=== PATIENT | female | born 1935 | race Caucasian/White ===

== ENCOUNTER 2018-02-01 02:02 | Emergency (ER) | payer OTHER ==
[~2018-02-01] VITALS: Ht 144.8 cm; Wt 43.1 kg
[~2018-02-01 02:02] MED LIST: ALENDRONATE SOD70 M3 PO; AMOXICILLIN500 M1 PO; ANT25 PO; CLARITHROMYCIN500 M1 PO; COL100 PO; COLACE100 MG PO; IBUPROFEN400 MG PO; IMITREX PO; LAC PO; LEVAQUIN250 MG PO; LISINOPRIL2.5 MG PO; MECLIZINE HYD12.5 MG PO; NORCO1 TA2 PO; SPIRIVA; SPIRIVA18 MC1 INH; TYLENOL WITH CO1 TA2 PO; ZES5 PO; ZOF4 PO
[2018-02-01 02:19] VITALS: Ht 144.8 cm; Wt 43.1 kg
[2018-02-01 03:28] LABS: BASOPHIL % 0.5 % (0-2); PLATELET COUNT 171 x10^3mcL (130-400)
[2018-02-01 04:06] LABS: CALCIUM 9.9 mg/dL (8.5-10.1); CARBON DIOXIDE 31.3 mmol/L (21-32); CHLORIDE SERUM 104 mmol/L (98-107); GLUCOSE SERUM 127 mg/dL (74-106); POTASSIUM SERUM 3.8 mmol/L (3.5-5.1); SODIUM SERUM 143 mmol/L (136-145)
[2018-02-01 04:10] LABS: ALBUMIN 3.7 g/dL (3.4-5.0); ALKALINE PHOSPHATASE 105 U/L (46-116); ALT/SGPT 18 U/L (14-59); AST/SGOT 24 U/L (15-37); BILIRUBIN TOTAL 0.48 mg/dL (0.20-1.00); LIPASE 136 IU/L (73-393)
[2018-02-01 04:11] LABS: AMYLASE 127 U/L (25-115)
[2018-02-01] MEDS ORDERED: COLACE100 MG PO (04:22)
[2018-02-01] MEDS ORDERED: PROAIR HFA8.5 GM IH (04:23)
[2018-02-01] MEDS ORDERED: ARICEPT5 MG PO (04:24)
[2018-02-01] MEDS ORDERED: APAP500 MG PO (04:25)
[2018-02-01 04:29] LABS: UA SPECIFIC GRAVITY 1.025 (1.005-1.035); microscopic required? YES; urine erythrocyte 2+ (NEGATIVE)
[2018-02-01 07:25] VITALS: BP 149/77
== END 2018-02-01 07:25 | disposition short-term general hospital (02) ==
LOC: ED 02:02
PROVIDERS: Emergency Medicine
DX: K56.609 Unspecified intestinal obstruction, unspecified as to partial versus complete obstruction (principal); E86.0 Dehydration; I10 Essential (primary) hypertension; J44.9 Chronic obstructive pulmonary disease, unspecified; M81.0 Age-related osteoporosis without current pathological fracture
CPT/HCPCS: 83880; J2270; J2405; J7030; J7040

== ENCOUNTER 2019-01-26 02:03 | Inpatient (IN) | payer OTHER ==
[~2019-01-26] VITALS: Ht 144.8 cm; Wt 35.8 kg
[~2019-01-26 02:03] MED LIST changes: +APAP500 MG PO; +ARICEPT5 MG PO; +PROAIR HFA8.5 GM IH
[2019-01-26 02:11] VITALS: Ht 144.8 cm; Wt 35.8 kg
--- NOTE | 2019-01-26 02:33 | NUR ---
PT PRESENTS TO ED WITH C/O ABDOMINAL PAIN AND VOMITING. PER PT FAMILY, PT HAS HX OF BOWEL OBSTRUCTIONS REQUIRING NG TUBE PLACEMENT AND SURGERY. PT DAUGHTER STATES THAT SHE HAS NOT HAD A NORMAL BOWEL MOVEMENT FOR 5 DAYS. PT STATES TO BILATERAL LOWER QUADRANT PAIN. PT ABDOMEN SOFT AND FLAT WITH INCREASED PAIN ON PALPATION. PT DAUGHTER STATES TO X5 EPISODES OF VOMITING SINCE 1999 LAST NIGHT. PT DAUGHTER STATES THAT SHE ADMINISTERED AN ENEMA THAT PRODUCED "A FEW POPEYE OF POOP" HOWEVER, PT CONTINUES TO EXPERIENCE ABDOMINAL PAIN. PT AOX4, RESP EVEN AND UNLABORED, NO ACUTE DISTRESS NOTED. PT DAUGHTER AT BEDSIDE.
--- NOTE | 2019-01-26 02:50 | NUR ---
DR PERES AT BEDSIDE FOR MSE.
--- NOTE | 2019-01-26 03:11 | NUR ---
PT NOTED TO BE HOLDING HER BREATH, O2 SAT IN THE LOW 80'S. INSTRUCTED PT NOT TO HOLD HER BREATH HOWEVER, PT CONTINUES TO HOLD BREATH. PT PLACED ON 2L O2 VIA NC O2 SAT NOTED AT 98% AT THIS TIME.
[2019-01-26 03:42] LABS: BASOPHIL % 0.7 % (0-2); RED CELL DISTRIBUTION WIDTH 13.8 % (11.5-14.5)
--- NOTE | 2019-01-26 03:42 | NUR ---
PT OFF FLOOR FOR CT.
[2019-01-26 03:44] LABS: CALCIUM 9.3 mg/dL (8.5-10.1); CARBON DIOXIDE 28.2 mmol/L (21-32); CHLORIDE SERUM 107 mmol/L (98-107); CREATININE SERUM 0.9 mg/dL (0.6-1.0); GLUCOSE SERUM 145 mg/dL (74-106); SODIUM SERUM 144 mmol/L (136-145)
[2019-01-26 03:46] LABS: PLATELET COUNT 35 x10^3mcL (130-400)
[2019-01-26 03:50] LABS: ALBUMIN 3.4 g/dL (3.4-5.0); ALKALINE PHOSPHATASE 101 U/L (46-116); ALT/SGPT 29 U/L (14-59); AST/SGOT 24 U/L (15-37); BILIRUBIN TOTAL 0.5 mg/dL (0.20-1.00); LIPASE 73 IU/L (73-393); TOTAL PROTEIN, SERUM 7.1 g/dL (6.4-8.2)
--- NOTE | 2019-01-26 03:59 | NUR ---
PT RETURNS FROM CT WITHOUT INCIDENT. PLACED BACK ON FULL CM.
--- NOTE | 2019-01-26 04:04 | NUR ---
PT PLACED ON BEDPAN AT THIS TIME.
--- NOTE | 2019-01-26 04:39 | NUR ---
PT RESTING WITH EYES CLOSED AT THIS TIME, RESP EVEN AND UNLABORED, NO ACUTE DISTRESS NOTED. PT ON CM, IN VIEW OF NURSE'S STATION.
--- NOTE | 2019-01-26 06:04 | NUR ---
PT RESTING IN A POSITION OF COMFORT WITH EYES CLOSED. RESP EVEN AND UNLABORED, NO ACUTE DISTRESS NOTED. PT ON CM IN VIEW OF NURSE'S STATION.
--- NOTE | 2019-01-26 06:11 | NUR ---
PT DAUGHTER UNABLE TO RECALL MEDICATION LIST AT THIS TIME.
--- NOTE | 2019-01-26 06:39 | NUR ---
PLACEMENT CONFIRMED BY XRAY AND READ BY DR PERES. PER DR PERES, SET SUCTION TO LOW INTERMITTANT, BROWN/GREEN GASTRIC CONTENTS DRAINING APPROPRIATELY.
--- NOTE | 2019-01-26 08:02 | NUR ---
PT REPROT GIVEN TO ANDRES COKER ALL QUESTIONS ADDRESSED AT THIS TIME.
--- NOTE | 2019-01-26 08:10 | NUR ---
RECIEVED PT VIA SOPHIE FROM ER DEPT. RECIEVED REPORT FROM ANDRES DE LEÓN. PT A/O X4, NO C/O HUIZAR OR DIZZINESS. TELE MONITOR 7 CONNECTED TO PT WITH MONITOR READING SR DECREASED T, BBB. DR ANDERSON AWARE. PT DENIES ANY CP OR PRESSURE AT THSI TIME. LUNGS CTAB ON RA 94% SAT. NGT CONNECTED TO R NARE ON LOW INTERMITTENT SUCTION. NO SOB NOTED. ECCHYMOSIS NOTED TO BUE. PT REPOERTS NO PAIN AT THSI TIME. D5NS RUNNING AT 80ML/HR TO LAC 20 GUAGE. IV INTACT AND PATENT WITH NO REDNESS OR INFLAMMATION NOTED. PT NPO AT THSI TIME NKA. SAFETY PRECAUTIONS IN PLACE, CALL LIGHT WITHIN REACH, WILL MONITOR.
--- NOTE | 2019-01-26 11:00 | NUR ---
PT STABEL AND RESTING IN BED WITH NO C/O PAIN, DISTRESS, OR SOB. DAUGHTER AT BEDSIDE. SAFETY PRECAUTIONS IN PLACE, CALL LIGHT WITHIN REACH, WILL MONITOR
--- NOTE | 2019-01-26 14:30 | NUR ---
PT STILL RESTING WITH NO DISTRESS NOTED. DAUGHTER AT BEDSIDE, TOLERATING ALL CARES WELL. CALL LIGHT WITHIN REACH, WILL MAXIMUS
[2019-01-26 16:00] VITALS: BP 138/63
[2019-01-26 16:01] VITALS: BP 135/57
--- NOTE | 2019-01-26 18:54 | NUR ---
PT RESTING COMFORTABLY IN BED WITH DAUGHTER AT BEDSIDE. DENIES ANY PAIN, DISTRESSS, OR SOB. VS WNL. IV INTACT AND PATENT WITH NO REDNESS OR INFLAMMATION. SCD,S ON PT.SAFETY PRECAUTIONS IN PLACE, CALL LIGHT WITHIN REACH, WILL ENDORSE CARE TO NIGHT NURSE.
--- NOTE | 2019-01-26 19:55 | NUR ---
DAUGHTER AT BEDSIDE FOR VISIT, AM CHARGE NURSE TALKED TO HER RE PLAN EXPLORE LAP FOR BOWEL OBSTRUCTION POSS BOWEL RESECTION, SURGEON WILL TALK TO THE DAUGHTER IN AM, DAUGHTER STATED WILL COME EARLY TOMORROW MORNING, PT REMAINED NPO, WITH NGT TO LOW INTERMITTENT SUCTION, HAS BROWNISH GREEN OUTPUT, IVF D5NS INFUSING @ 80CC/HR IV ACCESS LAC PATENT NON INFIL, SCD'S FOR DVT PROPHYLAXIS, TELE #7 INPLACED SR WITH BBB AND DEPRESSED TWAVE, NO CT OR PRESSURE, SKIN INTACT, DENIES PAIN, NO DISTRESS DIM LUNGS SOUND AT THE BASES, NO COUGHING OR CHEST CONGESTION, SHIFT ASSESSMENT DONE, ATTENDED NEEDS CONT TO MONITOR.
[2019-01-26 21:10] VITALS: BP 132/58
--- NOTE | 2019-01-26 22:46 | NUR ---
PT ASLEEP NO S/SX OF PAIN OR DISCOMFORTS, NGT TO LOW INTERMITTENT SUCT FUNCTIONING WELL, NO NAUSEA OR VOMITING, IVF INFUSING WELL, CHECKED AT INTERVALS.
--- NOTE | 2019-01-26 22:58 | NUR ---
SALINE ENEMA ADMINISTERED X1 PER MD'S ORDER, PRIYANK WELL.
--- NOTE | 2019-01-27 02:54 | NUR ---
NO BM POST FLEETS ENEMA, PT REMAINED ON NGT TO LOW INTERMITTENT SUCTION, ASLEEP NO S/SX OF PAIN.
[2019-01-27 05:30] VITALS: BP 133/76
[2019-01-27 06:28] LABS: BASOPHIL % 0.1 % (0-2); PLATELET COUNT 138 x10^3mcL (130-400); RED CELL DISTRIBUTION WIDTH 14.4 % (11.5-14.5)
[2019-01-27 06:29] LABS: ALKALINE PHOSPHATASE 83 U/L (46-116); ALT/SGPT 18 U/L (14-59); AST/SGOT 14 U/L (15-37); BILIRUBIN TOTAL 0.39 mg/dL (0.20-1.00); CALCIUM 9.3 mg/dL (8.5-10.1); CHLORIDE SERUM 111 mmol/L (98-107); CREATININE SERUM 0.8 mg/dL (0.6-1.0); GLUCOSE SERUM 164 mg/dL (74-106); MAGNESIUM 2.1 mg/dL (1.8-2.4); POTASSIUM SERUM 4.6 mmol/L (3.5-5.1); SODIUM SERUM 150 mmol/L (136-145)
--- NOTE | 2019-01-27 06:29 | NUR ---
PT REMAINED NPO, CHLORHEXIDINE WIPES DONE, PT DENIES PAIN NO NAUSEA OR VOMITING STILL NO BM AFTER ENEMA X1 WILL CONT TO MONITOR.
--- NOTE | 2019-01-27 07:15 | NUR ---
RECEIVED PATIENT FROM [employer] SPECIALIST NURSE. PATIENT IS RESTING WITH BOTH EYES CLOSED, AROUSABLE. TELE#7, SR, HR 86. PATIENT IS ON 2L NC, BREATHING EVEN AND UNLABORED. NGT NOTED TO LOW INTERMITTENT SUCTION WITH DARK BROWN OUTPUT. CLEAN AND DRY AT THIS TIME. IV NOTED TO LAC, IVF INFUSING WELL ORDERED, NO S/S ERYTHEMA AT SITE. CALL LIGHT WITHIN EASY REACH. WILL CONTINUE PLAN OF CARE.
--- NOTE | 2019-01-27 08:09 | NUR ---
PATIENT TAKEN DOWN TO OR AT THIS TIME.
--- NOTE | 2019-01-27 10:24 | NUR ---
RECEIVED REPORT FROM MARTHA VELAZQUEZ RN. PATIENT TO BE BROUGHT UP TO [facility] AROUND 1045.
[2019-01-27 10:47] VITALS: BP 148/74
--- NOTE | 2019-01-27 10:47 | NUR ---
RECEIVED PATIENT FROM OR. PATIENT IS AWAKE, ALERT AND DROWSY. C/O ABD SURGICAL SITE PAIN. WILL MEDICATE PRN. VS STABLE; BP 148/74 (88). HR 63. O2 SAT 100% ON 3L NC, TITRATED TO 2L NC. RR 16. ABD BINDER IN PLACE, SURGICAL INCISION INTACT WITH NO DRAINAGE NOTED TO DRESSING. WILL CONTINUE TO MONITOR.
--- NOTE | 2019-01-27 11:46 | NUR ---
Initial Nutrition Assessment: 250T/B LOAN NARVAEZ Dx: SBO PMHx: SBO PSHx: Hernia Repair Labs: NA 150H, BG 164H, AST 14L Meds: D 5%, zofran Diet: NPO PO Intake: NPO Ht: 144.78 CM (57") Wt: 35.8 kg (78.7#) BMI: 17.1 kg/m2 Bed scale: not working IBW: 85# (39 kg) %IBW: 92 UBW: ~35-36 kg Age: 83/F Food Allergies: NKFA Skin: ecchymosis BUE Walter: 21 Edema: none GI: SBO Last BM: none since admission Trigger: appears underweight/malnourished, N/V/D x 3d, unintentional weight loss >10# x 1 month, poor PO >3d, unable to ingest diet for age. 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 last bowel movement 4 days ago. Pain started acutely in the low abdominal region last night and CT revealed evidence of SBO. Patient was started on NGT decompression and her nausea resolved. Per progress note (01/27), Pt is going to OR today for ex-lap. RDN Visit (01/27): Patient appeared underweight, has an NGT for decompression and was sleeping. Patent's daughter was at bedside. Per daughter, patient is a light eater at home and does not have any chewing or swallowing difficulty. Daughter also mentioned that patient's weight has remained more or less the same since years. Problem with: N/V/D/C: pt has constipation Problems with: Chewing/Swallowing: none prior to admission Current appetite: poor Recent wt change: none %wt change: N/A Vitamin/Supplement use: none Special diet at home: regular Physical activity: walking, doing chores Nutrition education given: Patient's daughter had questions regarding diet for constipation issues. Concepts like high fiber food sources and increased consumption of fluids were emphasized. Food-drug interactions: none Education given: N/A Estimated Nutritional Needs Based on actual body weight 35.8 kg Energy: 5041-7091 kcal/d (30-35 kcal/kg)- geriatric maintenance Protein: 43-50 g/d (1.2-1.4g/kg)- geriatric maintenance Fluid: 8081-2673 ml/d (1 ml/kcal) or per doctor Nutrition Diagnosis 1. Malnutrition related to poor PO 2/2 SBO as evidenced by BMI 17.1 kg/m2. Intervention 1. Recommend CCHO diet (texture to be determined by [facility]) once medically appropriate/ tolerated. 2. Recommend Glucerna BID once diet id initiated. Monitor/Evaluate Goal: PO intake at least 75% of estimated needs Monitor: PO intake, Labs, GI function F/U in 2-3 days as high risk 01/29-
--- NOTE | 2019-01-27 11:46 | NUR ---
1. Recommend CCHO diet (texture to be determined by SPINNING ROOM WORKER) once medically appropriate/ tolerated. 2. Recommend Glucerna BID once diet id initiated.
--- NOTE | 2019-01-27 12:19 | NUR ---
NG TUBE ATTATCHED TO DARINAGE BACK TO DRAIN TO GRAVITY PER ORDERS. OUTPUT IS DARK BROWN. WILL CONTINUE TO MONITOR.
[2019-01-27 12:41] VITALS: BP 131/63
[2019-01-27 15:54] VITALS: BP 132/63
--- NOTE | 2019-01-27 18:49 | NUR ---
PATIENT RESTING EASY IN NO ACUTE DISTRESS. PATIENT CARE ENDORSED TO METAL TANK BUILDER NURSE.
--- NOTE | 2019-01-27 20:00 | NUR ---
RECEIVED PT IN BED, RESTING QUIETLY, WITH DAUGHTER AT THE BEDSIDE. ALERT AND ORIENTED. ABLE TO VERBALIZE NEEDS. RESP. EVEN AND UNLABORED. 02 AT 2L/MIN , SAT. 99%. LUNG SOUNDS CLEAR , BUT DIM. AT THE BASES. NGT TO RT NARE, CONNECTED TO GRAVITY DRAINAGE BAG, MIN. BROWNISH COLOR DRAINAGE NOTED IN THE TUBING. S/P EXP. LAP, ABD. DRESSING DRY AND INTACT, ABD. BINDER IN PLACE. NPO MAINTAINED. NO N/V NOTED. IVF, D51/2NS AT 60ML/HR, INTACT AND INFUSING VIA RAC, SITE CLEAR. HERNANDEZ CATH INTACT AND DRAINING YELLOW COLOR URINE. SCDS TO BLE FOR DVT PROPHYLASIX. SR WITH BBB ON THE MONITOR, DENIES CP OR ANY DISCOMFORT AT THIS TIME.CALL LIGHT WITHIN REACH. WILL CONTINUE TO MONITOR.
[2019-01-27 20:57] VITALS: BP 125/54
--- NOTE | 2019-01-27 21:30 | NUR ---
STARTED ON PPN AT 50ML/HR ORDERED. WILL CONTINUE TO MONITOR.
--- NOTE | 2019-01-27 22:52 | NUR ---
COMPLAINED OF ABD. SURG. SITE PAIN, 6/10, MEDICATED WITH MORPHINE SULFATE ORDERED. AFEBRILE AND VITAL SIGNS STABLE. WILL CONTINUE TO MONITOR.
--- NOTE | 2019-01-28 01:34 | NUR ---
RESTING QUIETLY WITH EYES CLOSED. APPEARS ASLEEP, EASILY AROUSABLE.RESP. EVEN AND UNLABORED. [address], NO ACUTE DISTRESS NOTED.
[2019-01-28 05:04] VITALS: BP 158/74
--- NOTE | 2019-01-28 06:17 | NUR ---
SLEPT WELL DURING THE NIGHT. AFEBRILE AND VITAL SIGNS STABLE. RESP. EVEN AND UNLABORED. [address], NO ACUTE DISTRESS NOTED. NGT IN PLACE, BROWNISH COLOR DRAINAGE NOTED IN THE TUBING, NONE IN THE DRAINAGE BAG. HERNANDEZ CATH INTACT AND DRAINING YELLOW COLOR URINE. ABD. DRESSING DRY AND INTACT. ABD. BINDER IN PLACE. NPO MAINTAINED. NO N/V NOTED. PPN AT 50ML/HR, INFUSING WELL, SITE CLEAR. TURNED AND REPOSITIONED FOR COMFORTABLE.CALL LIGHT WITHIN REACH. WILL CONTINUE TO MONITOR.
[2019-01-28 06:35] LABS: BASOPHIL % 0.3 % (0-2)
[2019-01-28 06:39] LABS: PLATELET COUNT 127 x10^3mcL (130-400); RED CELL DISTRIBUTION WIDTH 14.6 % (11.5-14.5)
[2019-01-28 07:04] LABS: ALKALINE PHOSPHATASE 73 U/L (46-116); ALT/SGPT 13 U/L (14-59); AST/SGOT 11 U/L (15-37); BILIRUBIN TOTAL 0.45 mg/dL (0.20-1.00); CALCIUM 8.4 mg/dL (8.5-10.1); CARBON DIOXIDE 30.1 mmol/L (21-32); CHLORIDE SERUM 110 mmol/L (98-107); CREATININE SERUM 0.6 mg/dL (0.6-1.0); GLUCOSE SERUM 141 mg/dL (74-106); MAGNESIUM 2.1 mg/dL (1.8-2.4); POTASSIUM SERUM 3.7 mmol/L (3.5-5.1); SODIUM SERUM 148 mmol/L (136-145)
--- NOTE | 2019-01-28 07:15 | NUR ---
RECEIVED PATIENT FROM ELASTIC ATTACHER COVERSTITCH NURSE. PATIENT IS AWAKE, ALERT AND ORIENTED. TELE#7, SR, HR 71. ON 2L NC, BREATHING EVEN AND UNLABORED. NG TUBE NOTED TO RIGHT NARE, DRAINING TO GRAVITY. HERNANDEZ CATHETER DRAINING PALE YELLOW URINE TO GRAVITY WELL, FREE OF KINKS. NICODERM PATCH NOTED TO RIGHT ARM. ABD BINDER REMAINS IN PLACE: PATIENT S/P EX-LAP ON 01/27. IV NOTED TO RAC, SALINE LOCKED, NO S/S ERYTHEMA AT SITE. TPN INFUSING WELL TO LAC, NO S/S ERYTHEMA AT SITE. CALL LIGHT WITHIN EASY REACH. WILL CONTINUE PLAN OF CARE.
[2019-01-28 07:16] LABS: ALBUMIN 2.5 g/dL (3.4-5.0)
[2019-01-28 08:20] VITALS: BP 182/77
--- NOTE | 2019-01-28 11:45 | NUR ---
NG TUBE ADVANCED AT THIS TIME. PENDING KUB FOR PLACEMENT REASSESSMENT. PATIENT TOLERATED WELL.
[2019-01-28 11:57] VITALS: BP 164/71
--- NOTE | 2019-01-28 12:42 | NUR ---
PATIENT ASSESSED AND APPEARS LETHARGIC, FOLLOWS SIMPLE COMMANDS. PUPILS BRISK 3MM. CHANGE IN PATIENTS APPEARANCE. PATIENT APPEARS TO BE SLIGHTLY MORE PALE THAN EARLIER THIS MORNING. PATIENT PLACED ON MONITOR WITH O2 SAT READING 90%, PLACED ON NASAL CANNULA, RESP APPEAR SHALLOW RR 12. NEW O2 SAT READING 99% ON 3L NC. PATIENT RESPONSIVE TO TACTILE STIMULATION. DR ANDERSON PAGED AND ORDER FOR NARCAN PRN OBTAINED. PATIENT IS NOW AWAKE AND ALERT WITH FAMILY AT THE BEDSIDE. FAMILY INSTRUCTED TO NOTIFY IF PATIENT HAS ANY CHANGE IN CONDITION. WILL CONTINUE TO CLOSELY MONITOR.
[2019-01-28 12:53] VITALS: BP 136/64
--- NOTE | 2019-01-28 14:30 | NUR ---
PATIENT AWAKE AND ALERT, CONVERSING WITH FAMILY. NG TUBE CONNECTED TO REGULAR SUCTION AT THIS TIME PER DR PERDUE ORDERS. DARK BROWN OUTPUT: APRROX 150CC. RECONNECTED TO GRAVITY AND DRAINING TO GRAVITY WELL. WILL CONTINUE TO MONITOR.
--- NOTE | 2019-01-28 16:36 | NUR ---
HERNANDEZ CATHETER DC'D AT THIS TIME. PATIENT TOLERATED WELL.
[2019-01-28 16:43] VITALS: BP 137/55
--- NOTE | 2019-01-28 18:39 | NUR ---
PATIENT RESTING EASY. DENIES PAIN AND DISCOMFORT AT THIS TIME. NG TUBE TO GRAVITY, DARK BROWN OUTPUT. TPN INFUSING WELL TO LAC, NO S/S ERYTHEMA AT SITE. CALL LIGHT WITHIN EASY REACH. WILL ENDORSE PATIENT CARE TO ACCOUNT LIAISON NURSE.
--- NOTE | 2019-01-28 20:03 | NUR ---
RECEIVED PT IN BED, RESTING ,NO COMPLAINTS NOTED AT THIS TIME. ALERT AND ORIENTED. ABLE TO VERBALIZE NEEDS. RESP. EVEN AND UNLABORED. 02 AT 3L/MIN VIA NC, SAT. 99%. NO ACUTE DISTRESS NOTED. AFEBRILE AND VITAL SIGNS STABLE. ABD. DRESSING DRY AND INTACT. ABD. BINDER IN PLACE. NGT TO GRAVITY GRAINAGE , WITH CONNECT TO SUCTION 30 SECONDS Q4HRS ORDERED. BROWNISH COLOR DRAINAGE NOTED. INCONT. OF URINE, CLEANED AND KEPT COMFORTABLE. PPN AT 50ML/HR, INFUSING VIA LAC, SITE CLEAR. HL TO TO RFA, INTACT AND PATENT. CALL LIGHT WITHIN REACH. WILL CONTINUE TO MONITOR.
[2019-01-28 21:24] VITALS: BP 127/55
--- NOTE | 2019-01-28 22:56 | NUR ---
2230- NGT CONNECTED TO SUCTION [id number]. AND RECONNECTED TO GRAVITY DRAINAGE.PRIYANK. WELL. NO COMPLAINTS NOTED AT THIS TIME. WILL CONTINUE TO MONITOR.
--- NOTE | 2019-01-29 03:44 | NUR ---
RESTING QUIETLY, WITH EYES CLOSED, APPEARS ASLEEP, EASILY AROUSABLE. RESP. EVEN AND UNLABORED. [address], NO ACUTE DISTRESS NOTED. AFEBRILE AND VITAL SIGNS STABLE. NGT IN PLACE. WILL CONTINUE TO MONITOR.
[2019-01-29 05:42] LABS: BASOPHIL % 0 % (0-2); PLATELET COUNT 112 x10^3mcL (130-400); RED CELL DISTRIBUTION WIDTH 13.8 % (11.5-14.5)
--- NOTE | 2019-01-29 05:50 | NUR ---
SLEPT MOST OF THE NIGHT. NO COMPLAINTS OF PAIN OR ANY DISCOMFORT.AFEBRILE AND VITAL SIGNS STABLE. SR ON THE MONITOR, DENIES CP. RESP. EVEN AND UNLABORED. [address], NO ACUTE DISTRESS NOTED. NGT INTACT, CONNECTED TO GRAVITY DRAINAGE AT THIS TIME, CONNECTED TO SUCTION Q4HRS FOR 30SECS. ORDERED. BROWNISH/BILE DRAINAGE NOTED. TOTAL 250ML. NOTED. NPO MAINTAINED. NO N/V NOTED. PPN AT 50ML/HR, INTACT AND INFUSING WELL, SITE CLEAR. DUE MEDS GIVEN ORDERED. TURNED AND REPOSITIONED Q2HRS AND PRN. KEPT COMFORTABLE. ABD. DRESSING DRY AND INTACT. ABD. BINDER IN PLACE. WILL CONTINUE TO MONITOR.
[2019-01-29 05:55] LABS: ALKALINE PHOSPHATASE 68 U/L (46-116); ALT/SGPT 11 U/L (14-59); AST/SGOT 8 U/L (15-37); BILIRUBIN TOTAL 0.36 mg/dL (0.20-1.00); CARBON DIOXIDE 32.9 mmol/L (21-32); CHLORIDE SERUM 105 mmol/L (98-107); CREATININE SERUM 0.7 mg/dL (0.6-1.0); GLUCOSE SERUM 143 mg/dL (74-106); MAGNESIUM 2.3 mg/dL (1.8-2.4); POTASSIUM SERUM 3.2 mmol/L (3.5-5.1); SODIUM SERUM 145 mmol/L (136-145); TOTAL PROTEIN, SERUM 6.3 g/dL (6.4-8.2)
[2019-01-29 05:57] LABS: ALBUMIN 2.4 g/dL (3.4-5.0)
[2019-01-29 06:02] VITALS: BP 139/68
--- NOTE | 2019-01-29 07:54 | NUR ---
AT 0730 - RECEIVED PATIENT FROM NIGHT NURSE. AWAKE, ALERT AND APPEARS ORIENTED. C/O SLIGHT HEADACHE. MONITOR SHOWING SINUS RHYTHM; RATE 70. IV IN LAC INFUSING TPN AT 50 ML/HR. NG TUBE TO GRAVITY - MINIMAL DARK BROWN DRAINAGE IN TUBING. ABDOMEN FLAT WITH DRESSING DRY AND INTACT AND ABDOMINAL BINDER IN PLACE. ICE PACK APPLIED TO HEAD FOR C/O SLIGHT HEADACHE. PATIENT IS NPO.
[2019-01-29 08:15] VITALS: BP 151/65
[2019-01-29 11:55] VITALS: BP 139/58
--- NOTE | 2019-01-29 13:35 | NUR ---
1. Recommend [facility] diet once diet is progressed/tolerated. 2. Continue TPN D10%, AA 4.25% @ 50ml/hr. This provides 612 kcal and 51g protein
--- NOTE | 2019-01-29 13:35 | NUR ---
Follow-up Nutrition Assessment: 250T/B SOLANGELOAN Moody FU HR Dx: SBO PMHx: SBO Labs: (01/29): K 3.2L, BG 143H, BUN 26H Meds: D10%, Humulin, zofran Diet: NPO, TPN 50ml/hr (1200 ml), Dextrose 10%, amino acid 4.25% PO Intake: NPO Weights: (01/26) 35.8 kg Skin: BUE ecchymosis Walter: 19 I/Os: 1370/1600 Edema: none GI: S/P ex-lap, NG tube to gravity Last BM: 01/25 RDN Visit (01/29): Patient was sleeping. TPN was running @ 50ml/hr. Per RN Rani, NG tube placed for suction is to be removed and pt will be NPO after. Clear liquid diet will be started from tomorrow morning however there are no discussions to D/C TPN yet. Estimated Nutritional Needs Based on actual body weight 35.8 kg Energy: 5229-4312 kcal/d (30-35 kcal/kg)- geriatric maintenance Protein: 43-50 g/d (1.2-1.4g/kg)- geriatric maintenance Fluid: 7692-5120 ml/d (1 ml/kcal) or per doctor Nutrition Diagnosis 1. Malnutrition related to poor PO 2/2 SBO as evidenced by BMI 17.1 kg/m2. (ongoing) Intervention 1. Recommend CCHO diet once diet is progressed/tolerated. 2. Continue TPN D10%, AA 4.25% @ 50ml/hr. This provides 612 kcal and 51g protein Monitor/Evaluate Goal: Have pt meet at least 75% of estimated needs Monitor: PO intake, Labs, GI function F/U in 2-3 days as high risk 01/31-
--- NOTE | 2019-01-29 13:46 | NUR ---
AT 1000- SEEN BY DR XIE AND DR ANDERSON. NEW ORDERS RECEIVED. PER DR XIE, APTIENT TO RECEIVE MIRALAX AT 1100. ALSO OK TO GIVE OTHER ORDERS PO MEDS AT THE TIME. CLAMP NG TUBE FOR 1 HR POST MEDS. KEEP NG AT GRAVITY DRAINAGE THIS PM. REMOVE NG AT 1800 HR. PATIENT TO REMAIN NPO OVERNIGHT AT TO COMMENCE CLEAR LIQUID DIET IN AM.
[2019-01-29 17:02] VITALS: BP 109/48
--- NOTE | 2019-01-29 18:32 | NUR ---
QUIET AFTERNOON. NO C/O PAIN. VSS. AFEBRILE. AT 1845 - NG TUBE REMOVED INTACT PER ORDERS. PATIENT THEN AMBULATED IN HALLWAY WITH ASSISTANCE. TOLERATED WELL. STEADY GAIT. IV INFUSING TPN AT 50 ML/HR. PATIENT NOW NPO UNTIL MORNING. DRESSING TO ABDOMIN REMAINS DRY AND INTACT WITH ABDOMINAL BINDER IN PLACE. WILL ENDORSE CARE TO NIGHT NURSE.
--- NOTE | 2019-01-29 19:20 | NUR ---
REC'D PT FROM DAY NURSE. PT'S DAUGHTER AND GRANDDAUGHTER AT BEDSIDE. PT RESTING IN BED ASLEEP. EASILY AROUSABLE. AAOX4, SPEECH CLEAR, FOLLOWS COMMANDS. C/O 5/10 HUIZAR, WILL GIVE TYLENOL. TELE 7. DENIES CP, DIZZINESS, OR PALPITATIONS. DENIES RESP DISTRESS OR SOB. BREATHING EVEN/UNLABORED ON RA. C/O ABD PAIN WITH COUGH, NONPRODUCTIVE. ABD SOFT/ROUND. S/P EXP LAP WITH ENTEROLYSIS. DRESSING TO ABD CDI WITH ABD BINDER IN PLACE. DENIES ABD PAIN. NPO. CLEAR LIQUID FOR BREAKFAST. VOIDING FREELY WITH SOME INCONTINENCE. GEN WEAKNESS. AMBULATORY. ECCHYMOSIS TO BUE. ISLAND DRESSING TO LFA CDI. IV TO LAC PATENT AND INFUSING PPN @ 50 ML/HR. IV TO RH FLUSHED AND PATENT. SITES WNL. CALL LIGHT WITHIN REACH, BED AT LOWEST POSITION. WILL CONTINUE TO MONITOR.
--- NOTE | 2019-01-29 20:11 | NUR ---
DR. MASSIEL CONTRERAS. PT REQUESTING TYLENOL FOR HUIZAR, ONLY MORPHINE ON BOARD FOR PAIN.
--- NOTE | 2019-01-29 20:15 | NUR ---
REC'D CALL BACK FROM DR. RANKIN. REC'D ORDERS FOR TYLENOL AND NORCO.
--- NOTE | 2019-01-29 21:00 | NUR ---
TYLENOL GIVEN FOR HUIZAR 12/18. WILL MONITOR FOR RELIEF.
[2019-01-29 21:18] VITALS: BP 121/59
--- NOTE | 2019-01-30 00:42 | NUR ---
PT RESTING IN BED WITH EYES CLOSED. NO SIGNS OF DISTRESS NOTED. BREATHING EVEN/UNLABORED ON RA. CALL LIGHT WITHIN REACH, BED AT LOWEST POSITION. WILL CONTINUE TO MONITOR.
[2019-01-30 05:28] VITALS: BP 111/53
--- NOTE | 2019-01-30 06:15 | NUR ---
PT RESTING IN BED WITH EYES CLOSED. AWAKENS WITH VERBAL STIMULI. NO COMPLAINTS AT THIS TIME. DENIES PAIN. BREATHING EVEN/UNLABORED ON 2L NC. DRESSING TO ABD CDI WITH BINDER IN PLACE. DR. XIE ORDERED HIGH PROTEIN ENSURE TID, ENTERED BY TABLET REPAIR. NO SIGNIFICANT CHANGES. CALL LIGHT WITHIN REACH, BED AT LOWEST POSITION. WILL ENDORSE TO DAY NURSE.
[2019-01-30 07:27] LABS: BASOPHIL % 0.3 % (0-2); RED CELL DISTRIBUTION WIDTH 13.8 % (11.5-14.5)
[2019-01-30 07:28] LABS: ALKALINE PHOSPHATASE 62 U/L (46-116); ALT/SGPT 10 U/L (14-59); AST/SGOT 10 U/L (15-37); BILIRUBIN TOTAL 0.34 mg/dL (0.20-1.00); CARBON DIOXIDE 36.3 mmol/L (21-32); CHLORIDE SERUM 105 mmol/L (98-107); CREATININE SERUM 0.6 mg/dL (0.6-1.0); GLUCOSE SERUM 128 mg/dL (74-106); MAGNESIUM 2.5 mg/dL (1.8-2.4); PLATELET COUNT 112 x10^3mcL (130-400); SODIUM SERUM 145 mmol/L (136-145)
[2019-01-30 07:32] LABS: ALBUMIN 2.3 g/dL (3.4-5.0); POTASSIUM SERUM 2.9 mmol/L (3.5-5.1); TOTAL PROTEIN, SERUM 5.9 g/dL (6.4-8.2)
--- NOTE | 2019-01-30 07:49 | NUR ---
AT 0720 - RECEIVED PATIENT FROM NIGHT NURSE. SLEEPING. RESPIRATIONS REGULAR. MONITOR SHOWING SINUS RHYTHM/BBB; RATE 55. IV INFUSING TPN AT 50 ML/HR. PATIENT HAS BEEN NPO - TO START CLEAR LIQUIDS TODAY.
--- NOTE | 2019-01-30 08:01 | NUR ---
AT 0740 - RECEIVED CALL FROM LAB WITH K+ OF 2.9 NOT CALLED TO DOCTOR THERE IS A STANDING ORDER FOR KCL 40 MEQ DAILY FOR 4+ LEVEL < 4.0. WILL ADMINISTER ORDERED.
--- NOTE | 2019-01-30 08:03 | NUR ---
PATIENT IS AWAKE, ALERT AND ORIENTED. DENIES ANY PAIN OR NAUSEA. SAT UP IN BED FOR CLEAR LIQUID BREAKFAST.
[2019-01-30 08:19] VITALS: BP 136/69
--- NOTE | 2019-01-30 09:19 | NUR ---
PATIENT WAS ABLE TO TAKE APPROX 30% OF CLEAR LIQUID BREAKFAST WELL ALL PO MEDS. GIVEN 40 MEQ KCL PO PER EMAR FOR K+ OF 2.9.
--- NOTE | 2019-01-30 10:28 | NUR ---
PATIENT'S DAUGHTER AT [facility]. UPDATED ON CURRENT PLAN.
--- NOTE | 2019-01-30 10:49 | NUR ---
PATIENT AMBULATED IN HALLWAY. GOOD ACTIVITY TOLERANCE. SEEN BY DR XIE.
--- NOTE | 2019-01-30 10:56 | NUR ---
NEW ORDERS RECEIVED. DC PPN AFTER CURRENT BAG IS COMPLETED. AFTER PPN PT TO HAVE IV FLUID OF D5 1/2 NS AT 30 ML/HR. HOLD LUNCH TODAY AND RESUME CLEAR LIQUID DIET AT 1600 HR. SURGICAL INCISION DRESSING CHANGED BY DR XIE. INSICION WITH TOBIN IS CLEAN AND DRY. COVERED WITH GAUZED AND ISLAND DRESSING. ABDOMINAL BINDER IN PLACE.
--- NOTE | 2019-01-30 15:34 | NUR ---
SEEN BY DR RINCON. CONTINUE WITH ORDERS PER DR XIE. FOR LABS IN AM.
--- NOTE | 2019-01-30 15:57 | NUR ---
PATIENT AMBULATED IN HALLWAY. NO FURTHER C/O ABDOMINAL PAIN. REPORTS PASSING GAS. ACTIVE BOWEL SOUNDS ON AUSCULTATION. WILL RESUME CLEAR LIQUIDS PO.
[2019-01-30 17:09] VITALS: BP 116/53
--- NOTE | 2019-01-30 18:25 | NUR ---
TOLERATING CLEAR LIQUID DIET. REPORTS PASSING GAS. ACTIVE BOWEL SOUNDS. NO C/O ABDOMINAL PAIN. IV STIL INFUSING PPN AT 50 ML/HR. VSS. AFEBRILE. AMBULATED TO BATHROOM TO VOID. NO BM YET. HAS BEEN USING INSENTIVE SPIROMETER. ON ROOM AIR AT 93% O2 SAT. WILL ENDORSE CARE TO NIGHT NURSE.
--- NOTE | 2019-01-30 19:39 | NUR ---
REC'D PT FROM DAY NURSE. DAUGHTER AT BEDSIDE. PT RESTING IN BED. AAOX4, SPEECH CLEAR, FOLLOWS COMMANDS. TELE 7. DENIES CP, DIZZINESS, OR PALPITATIONS. NO EDEMA NOTED. DENIES RESP DISTRESS OR SOB. BREATHING EVEN/UNLABORED ON RA. ABD SOFT/ROUND. DENIES ABD PAIN, TENDERNESS, OR N/V. S/P EXP LAP WITH ENTEROLYSIS POD #3. PASSING GAS, NO BM. VOIDING FREELY WITH EPISODES OF INCONTINENCE. GEN WEAKNESS. FWW WITH PHYSICAL THERAPY. USUALLY AMB BY SELF. DRESSING TO ABD CDI WITH ABD BINDER IN PLACE. ECCHYMOISIS BUE. REPORTS PAIN TO ABD ONLY WHILE COUGHING, PRODUCTIVE WITH SMALL AMT OF WHITE SPUTUM. IV TO LAC PATENT AND INFUSING PPN @ 50 ML/HR. IV TO RH FLUSHED AND PATENT, SITE WNL. CALL LIGHT WITHIN REACH, BED AT LOWEST POSITION. WILL CONTINUE TO MONITOR.
[2019-01-30 20:21] VITALS: BP 127/64
--- NOTE | 2019-01-31 00:15 | NUR ---
PT RESTING IN BED WITH EYES CLOSED. LAYING ON L SIDE. NO SIGNS OF DISTRESS NOTED. BREATHING EVEN/UNLABORED ON RA. CALL LIGHT WITHIN REACH, BED AT LOWEST POSITION. WILL CONTINUE TO MONITOR.
--- NOTE | 2019-01-31 05:15 | NUR ---
PT HAD A 6-BEAT RUN OF PVC'S. PT ASYMPTOMATIC AND SLEEPING. BP 106/56, HR 65. RHYTHM WILL ALSO GO INTO ACCELERATED JUNCTIONAL. TELE [address] CURRENTLY READING NSR. SPOKE TO DR. LUNDBERG AND MADE AWARE. NO CHANGES IN ORDERS AT THIS TIME.
[2019-01-31 05:35] VITALS: BP 106/56
--- NOTE | 2019-01-31 05:52 | NUR ---
PT RESTING IN BED WITH EYES CLOSED. AWAKENS WITH VERBAL STIMULI. BREATHING EVEN/UNLABORED ON RA. REPORTS PAIN TO ABD ONLY WHILE COUGHING. ABD SOFT/FLAT. NO BM LAST NIGHT BUT PASSING GAS. DRESSING TO ABD CDI, BINDER IN PLACE. CALL LIGHT WITHIN REACH, BED AT LOWEST POSITION. WILL ENDORSE TO DAY NURSE.
[2019-01-31 06:43] LABS: CALCIUM 8.8 mg/dL (8.5-10.1); CARBON DIOXIDE 34.2 mmol/L (21-32); CHLORIDE SERUM 107 mmol/L (98-107); CREATININE SERUM 0.6 mg/dL (0.6-1.0); GLUCOSE SERUM 100 mg/dL (74-106); POTASSIUM SERUM 3.6 mmol/L (3.5-5.1); SODIUM SERUM 146 mmol/L (136-145)
[2019-01-31 06:47] LABS: BASOPHIL % 0.4 % (0-2); PLATELET COUNT 139 x10^3mcL (130-400); RED CELL DISTRIBUTION WIDTH 13.6 % (11.5-14.5)
--- NOTE | 2019-01-31 07:25 | NUR ---
AAO X4.C/O ABD'L INCISSION PAIN AT 3/10 PAIN SCALE.LUNG SOUND DIM.ON SR ON THE MONITOR.IVF D5 1/2 NS GOING AT 25 ML/HR INFUSING WELL.MID ABD'L INCISSION WITH TOBIN COVERED WITH ISLAND DRESSING CDI.ABD'L BINDER ON.CALL LIGHT WITHIN REACH.INSTRUCTED TO CALL FOR ANY PAIN/DISCOMFORT.WILL CONTINUE TO MONITOR PT.
[2019-01-31 09:43] VITALS: BP 120/67
[2019-01-31 13:10] VITALS: BP 119/59
[2019-01-31 13:39] VITALS: BP 119/59
--- NOTE | 2019-01-31 13:54 | NUR ---
INFORMED ABOUT 'S ORDER TO D/C PT IN AM. SPOKE WITH . PER IT'S OK FOR PT TO BE D/C'D TONIGHT IF TOLERATING HER REG DIET TONIGHT.
[2019-01-31 17:26] VITALS: BP 151/56
--- NOTE | 2019-01-31 18:06 | NUR ---
PT TOLERATED HER DINNER WELL.NO NAUSEA AND VOMITTING.
--- NOTE | 2019-01-31 18:29 | NUR ---
PT D/C TO HOME IV AND MONITOR D/C'D.RX AND D/C INSTRUCTION GIVEN PT AND DAUGHTER VERBALIZES UNDERSTANDING.TOOK PICTURE ON ABD'L INCISSION.ALSO GAVE THEM EXTRA DRESSING FOR DRESSING CHANGE JUST IN CASE ABD'L DRESSING GET SOILED.WENT DOWN VIA WHEELCHAIR ACCOMPANIED BY RN AND DAUGHTER.
== END 2019-01-31 18:35 | disposition home or self-care (01) | DRG 336 ==
LOC: ED 02:03 → DU 07:41
PROVIDERS: Emergency Medicine; Internal Medicine Pulmonary Disease; Surgery; ADMIT Internal Medicine Pulmonary Disease
PROC: 0DNA0ZZ Release Jejunum, Open Approach (ICD-10-PCS; 2019-01-27)
PROC: 0DNB0ZZ Release Ileum, Open Approach (ICD-10-PCS; principal; 2019-01-27 08:30)
DX: K56.51 Intestinal adhesions [bands], with partial obstruction (principal); Z68.1 Body mass index [BMI] 19.9 or less, adult; E44.0 Moderate protein-calorie malnutrition; J44.9 Chronic obstructive pulmonary disease, unspecified; I10 Essential (primary) hypertension; F17.210 Nicotine dependence, cigarettes, uncomplicated; M81.0 Age-related osteoporosis without current pathological fracture; F03.90 Unspecified dementia, unspecified severity, without behavioral disturbance, psychotic disturbance, mood disturbance, and anxiety
CPT/HCPCS: 82962; 97116-GP; 97530-GP; G0378; J0330; J0690; J2175; J2270; J2405; J2704; J3010; J3490; J7030; J7042; J7050; J7120; J7131; Q0092

== ENCOUNTER 2019-05-03 18:15 | Inpatient (IN) | payer OTHER ==
[~2019-05-03] VITALS: Ht 144.8 cm; Wt 34.5 kg
[2019-05-03 18:36] VITALS: Ht 144.8 cm; Wt 34.5 kg
[2019-05-03 19:09] LABS: BASOPHIL % 0.4 % (0-2); PLATELET COUNT 197 x10^3mcL (130-400); RED CELL DISTRIBUTION WIDTH 13.6 % (11.5-14.5)
--- NOTE | 2019-05-03 19:20 | NUR ---
PT C/O ABD PAIN SINCE AM. PT BIB DAUGHTER. PER DAUGHTER, PT HAS HAD SURGERY FOR BLOCKAGES, PROMPTING THEM TO COME IN. PT STS THAT SHE FEELS "BLOATED AND CONSTIPATED." PT REPORTS LAST BM WAS 3 DAYS AGO. PT DESCRIBES PAIN GENERALIZED, NON-RADIATING TIGHTNESS. ABD FIRM, AND TENDER TO TOUCH. PT REPORTS NO OTHER COMPLAINTS. PT DENIES FEVERS/CHILLS, N/V/D. NAD NOTED AT THIS TIME. WILL CONTINUE TO MONITOR.
--- NOTE | 2019-05-03 19:23 | NUR ---
PT TAKEN TO X-RAY VIA WHEELCHAIR
[2019-05-03 19:24] LABS: CALCIUM 9.3 mg/dL (8.5-10.1); CARBON DIOXIDE 30.8 mmol/L (21-32); CHLORIDE SERUM 105 mmol/L (98-107); CREATININE SERUM 0.8 mg/dL (0.6-1.0); GLUCOSE SERUM 116 mg/dL (74-106); POTASSIUM SERUM 4.5 mmol/L (3.5-5.1); SODIUM SERUM 141 mmol/L (136-145)
[2019-05-03 19:26] LABS: ALBUMIN 3.4 g/dL (3.4-5.0); ALKALINE PHOSPHATASE 112 U/L (46-116); ALT/SGPT 16 U/L (14-59); AST/SGOT 20 U/L (15-37); BILIRUBIN TOTAL 0.46 mg/dL (0.20-1.00); TOTAL PROTEIN, SERUM 8.1 g/dL (6.4-8.2)
[2019-05-03 20:08] LABS: UA SPECIFIC GRAVITY >=1.030 (1.005-1.035); microscopic required? YES; urine erythrocyte 2+ (NEGATIVE)
--- NOTE | 2019-05-03 20:45 | NUR ---
16FR NG TUBE PLACED IN LEFT NOSTRIL. AWAITING X-RAY FOR PLACEMENT CHECK.
--- NOTE | 2019-05-03 21:02 | NUR ---
X-RAY AT BEDSIDE
--- NOTE | 2019-05-03 21:09 | NUR ---
X-RAY AND MD CONFIRMED NG TUBE PLACEMENT
--- NOTE | 2019-05-03 21:18 | NUR ---
500CC OMNIPAQUE CONTRAST ADMINSTERED VIA NG TUBE
[2019-05-03] MEDS ORDERED: PEPCID20 MG PO (21:21)
--- NOTE | 2019-05-03 21:34 | NUR ---
PT LAYING COMFORTABLY IN BED, AWAKE AND ALERT. VSS, RESPS E/U, NAD NOTED AT THIS TIME. BED IN LOW AND LOCKED POSITION, 2 BED RAILS UP. DAUGHTER AT BEDSIDE. CALL LIGHT W/IN REACH. AWAITING BED ASSIGNMENT.
--- NOTE | 2019-05-03 21:59 | NUR ---
REPORT GIVEN TO IRWIN CAMPOS TO ASSUME CARE OF PT
--- NOTE | 2019-05-03 22:11 | NUR ---
RECEIVED PT VIA GURNEY FROM E/D, ACCOMPANIED BY TRANSPORTER AND PT'S DAUGHTER, R[place] VALLES. A/A/O X 4, CALM, COOPERATIVE, SPEAKS GAMBIAN AND VERY LITTLE LITHUANIAN, DAUGHTER BY BEDSIDE FROM TRANSLATION; C/O INTERMITTENT THROBBING H/A 4/10. PT W/ GENERALIZED WEAKNESS, BUT ABLE TO AMBULATE W/ ASSIST W/ SLOW, STEADY GAIT; HX FALL 2/2 DIZZINESS 2/2 MED S/E; FALL RISK PROTOCOL IN PLACE. C/O DIZZINESS, DENIES CHEST PAIN OR DISCOMFORT AT THIS TIME. SCD BY BEDSIDE. LUNGS CTAB, CHEST RISING EVENLY, R/A, 95%, C/O INTERMITTENT DRY COUGH, NO ACUTE RESPIRATORY DISTRESS AT THIS TIME. ABD FIRM, ROUND, TENDERNESS UPON PALPATION TO BLQ (C/O CONSTANT DULL PAIN /10, EXACERBATED BY COUGHING, RELIEVED BY RESTING AND PAIN MEDICATION), NORMOACTIVE BOWEL SOUNDS AND TYMPANY UPON PERCUSSION X 4 QUADS, +FLATUS, +NAUSEA, LAST BM 05/03/19, HARD; NGT L NARES 16FR W/ INTERMITTENT SUCTIONING, DRAINING BROWN FLUID; POOR PO INTAKE > 3 DAYS. VOIDS FREELY, NO DYSURIA, C/O DARK ORANGE URINE. IV SITE LAC 20G, CDI. ORIENTED PT AND DAUGHTER TO ROOM, BED CONTROLS, CALL LIGHT SYSTEM. SIDE RAILS UP X 2, BED IN LOW POSITION. WILL ENDORSE TO ANDRES GAYLE.
[2019-05-03 22:48] VITALS: BP 151/65
--- NOTE | 2019-05-04 01:08 | NUR ---
PT SLEEPING AT THIS TIME,WILL CONTINUE TO MONITOR.
[2019-05-04 05:37] VITALS: BP 116/47
[2019-05-04 06:31] LABS: BASOPHIL % 0.2 % (0-2); PLATELET COUNT 203 x10^3mcL (130-400); RED CELL DISTRIBUTION WIDTH 13.5 % (11.5-14.5)
--- NOTE | 2019-05-04 06:39 | NUR ---
PT HAD A RESTING NIGHT NO CHANGE AT THIS TIME,WILL CONTINUE TO MONITOR.
[2019-05-04 06:40] LABS: ALKALINE PHOSPHATASE 90 U/L (46-116); ALT/SGPT 14 U/L (14-59); AST/SGOT 18 U/L (15-37); BILIRUBIN TOTAL 0.5 mg/dL (0.20-1.00); CALCIUM 8.3 mg/dL (8.5-10.1); CARBON DIOXIDE 28.5 mmol/L (21-32); CHLORIDE SERUM 104 mmol/L (98-107); CREATININE SERUM 0.7 mg/dL (0.6-1.0); GLUCOSE SERUM 145 mg/dL (74-106); MAGNESIUM 1.7 mg/dL (1.8-2.4); POTASSIUM SERUM 4.5 mmol/L (3.5-5.1); SODIUM SERUM 139 mmol/L (136-145); TOTAL PROTEIN, SERUM 6.6 g/dL (6.4-8.2)
[2019-05-04 07:01] LABS: ALBUMIN 2.6 g/dL (3.4-5.0)
--- NOTE | 2019-05-04 08:00 | NUR ---
RECEIVED PATIENT ALERT/ORIENTED X3; TAJIK SPEAKING. 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 DENIED ABD PAIN. NPO. ON L/I SUCTION VIA NGT. BROWN GI DRAINAGE NOTIED. ABD FLAT/SOFT. BOWEL SOUND ACTIVE. NAUSEA AT TIMES. NO VOMITING NOTED. VOID VIA BED DE LUNA, TALHA URINE NOTED. GENERAL WEAKNESS. IVF OF D5 NS 80CC/HR. IV SITE TO LAC INTACT. NO RESP DISTRESS ON RA. DENIED CHEST PAIN. CALL LIGHT IN REACH.
[2019-05-04 09:46] VITALS: BP 123/58
--- NOTE | 2019-05-04 14:00 | NUR ---
DR. RANKIN CAME TO SEE PATIENT. NEW ORDER WRITTEN.
--- NOTE | 2019-05-04 14:30 | NUR ---
WENT TO RADIOLOGY DEPT FOR SMALL BOWEL FOLLOW THOUGH. NGT DISCONNECTED FROM SUCTION.
[2019-05-04 17:09] VITALS: BP 159/54
--- NOTE | 2019-05-04 19:00 | NUR ---
SLEEPING NOW. DAUGHTER AT BED SIDE. SBFT DONE. RESULT IN PENDING. NGT SUCTION 150CC MEASURED. VOID X4 VIA BED DE LUNA. EST. 450CC COLLECTED. IVF OF D5 NS 80CC/HR CONTINUED. DR. CAMPOS SAW PATIENT. ENDORSED CARE TO [facility] NURSE.
--- NOTE | 2019-05-04 21:57 | NUR ---
PT RECIEVED AAO REG RESP NO SOB V/S STABLE,IV INFUSING WELL WITH THE SITE PATENT AND INTACT,PT HAS A NGT TO LOW INTERMITTENT SUCTION WITH BROWNISH SECREATION,ABDO IS SOFT WITH ACTIVE BOWEL SOUNDS,NO PAIN REPORTED ATR THIS TIME,KEPT CLEAN AND DRY TO TOUCH,BED IN THE LOW POSITION AND LOCKED,CALL LIGHT EASY REACHED AND WILL CONTINUE TO MONITOR.
--- NOTE | 2019-05-04 23:23 | NUR ---
PT RESTING AT THIS TIME,WILL CONTINUE TO MONITOR.
[2019-05-05 05:53] VITALS: BP 135/59
--- NOTE | 2019-05-05 06:32 | NUR ---
PT HAD A RESTING NIGHT NO CHANGE AT THIS TIME,CALL LIGHT EASY REACHED AND WILL CONTINUE TO MONITOR.
[2019-05-05 06:36] LABS: BASOPHIL % 0.6 % (0-2); PLATELET COUNT 195 x10^3mcL (130-400); RED CELL DISTRIBUTION WIDTH 13.5 % (11.5-14.5)
[2019-05-05 06:55] LABS: CALCIUM 8.5 mg/dL (8.5-10.1); CARBON DIOXIDE 29.1 mmol/L (21-32); CHLORIDE SERUM 108 mmol/L (98-107); CREATININE SERUM 0.7 mg/dL (0.6-1.0); GLUCOSE SERUM 109 mg/dL (74-106); MAGNESIUM 1.7 mg/dL (1.8-2.4); POTASSIUM SERUM 4.1 mmol/L (3.5-5.1); SODIUM SERUM 143 mmol/L (136-145)
--- NOTE | 2019-05-05 07:20 | NUR ---
PT IS AAOX4. RESP EVEN AND UNLABORED. LUNG SOUNDS CTA. ON R/A. NO COUGH OR SOB NOTED. NORMAL S1S2 NOTED. ABDOMEN SOFT, NONTENDER, NONDISTENDED. BOWEL SOUNDS ACTIVE X4. PT DENIES N/V/D AND CONSIPATION. SKIN CDI. NO EMEMA NOTED. IVF RUNNING TO [facility], SITE WNL. COVERED WITH CDI OCCLUSIVE DRESSING. NO S/S OF INFECTION NOTED. PT DENIES PAIN AT THIS TIME. CALL LIGHT WITHIN REACH. BED IN LOW POSTION. FALL PROTOCOL IN PLACE.
[2019-05-05 08:16] VITALS: BP 122/57
--- NOTE | 2019-05-05 08:29 | NUR ---
PT COMPLETED P/T TRAINING. PT WAS ABLE TO AMBULATE INDEPENDENTLY IN [address] 100 FT WITH STEADY GAIT.
--- NOTE | 2019-05-05 11:24 | NUR ---
MAG 2GM IVPB STARTED FOR MAG LEVEL =1.7. PT EDUCATED ON THE RISKS AND BENEFITS OF MAG REPLACEMENT. PT VERBALIZED UNDERSTANDING. DENIES PAIN. NO DISTRESS NOTED. CALL LIGHT WITHIN REACH. DAUGHTER AT BEDSIDE.
--- NOTE | 2019-05-05 11:54 | NUR ---
Initial Nutrition Assessment: 210/B LOAN NARVAEZ IA HR Dx: SBO PMHx: COPD, HTN, osteoporosis, prior bowel obstruction PSHx: inguinal hernia repair, hysterectomy, hemorrhoid surgery, cataract surgery Labs: BG 109H, MG 1.7L, ALB 2.6L, Meds: D 5%, morphine, Zofran, heparin Diet: NPO except meds PO Intake: NPO Ht: 144.78 cm (57") Wt: 34.4 kg (76#) BMI: 16.4 kg/m2 Bed scale: 38.6 kg IBW: 85# (39 kg) %IBW: 89 UBW: 76-78# Age: 83/F Food Allergies: NKFA Skin: intact Walter: 17 Edema: none GI: Last BM: 05/04 Trigger: N/V/D >3d, poor PO >3d Per H&P, Pt is a 83 year old female, active smoker, presenting with worsening abd pain for last 1-2 days and decreased bowel movements for last 3 days. RDN Visit (05/05): Patient was sleeping. Pt's daughter was at bedside. She said that patient weighs between 76-78# since a year and does not have a very good appetite even at home. Patient's diet has been progressed to clear liquids. Problem with: N/V/D/C: constipation Problems with: Chewing/Swallowing: none Current appetite: poor Recent wt change: none %wt change: n/a Vitamin/Supplement use: none Special diet at home: regular Physical activity: gardening Nutrition education given: none at this time Food-drug interactions: heparin- consistent vitamin K intake Education given: n/a Estimated Nutritional Needs Based on current body weight 38.6 kg Energy: 1744-0861 kcal/d (35-40 kcal/kg) Protein: 46-54 g/d (1.2-1.4 g/kg) - malnutrition Fluid: 8360-0962 ml/d (1 ml/kcal) or per doctor Nutrition Diagnosis 1. Malnutrition related to chronic poor PO as evidenced by BMI 16.4 kg/m2 Intervention 1. Recommend continuing clear liquid diet at this time. 2. Progress to full liquid when medically appropriate/tolerated. Monitor/Evaluate Goal: PO intake at least 75% of estimated needs Monitor: PO intake, Labs, GI function F/U in 2-3 days as high risk 8/27-28
--- NOTE | 2019-05-05 11:54 | NUR ---
1. Recommend continuing clear liquid diet at this time. 2. Progress to full liquid when medically appropriate/tolerated.
--- NOTE | 2019-05-05 14:00 | NUR ---
PT IS SITTING UP IN BED VISITING WITH DAUGHTER. RESP EVEN AND UNLABORED. NO DISTRESS NOTED. PT DENIES PAIN. CALL LIGHT WITHIN REACH.
--- NOTE | 2019-05-05 15:01 | NUR ---
PHYSICAL THERPAY NOTE ATTEMPTED FOR PHYSCIAL THERAPY FOLLOW UP SESSION.PATIENT REFUSED STATING THAT SHE IS BEING DISCHARGED AT 4 AND DO NOT FEEL LIKE PARTICIPATING. EDUCATED ABOUT THE IMPORTANCE OF MOBILITY.
--- NOTE | 2019-05-05 15:52 | NUR ---
RECEIVED ORDER FROM DR. RANKIN, ADVANCE DIET TOLERATED TO FULL LIQUID THEN MECH SOFT. PT'S CLEAR LIQUID DIET D/C. NEW DIET ORDERED FULL LIQUID. PT MADE AWARE.
[2019-05-05 16:24] VITALS: BP 117/46
--- NOTE | 2019-05-05 18:48 | NUR ---
PT IS AAOX4. RESP EVEN AND UNLABORED. NO DISTRESS NOTED. PT DENIES PAIN AND DISCOMFORT. IV FLUIDS RUNNING TO RAC, SITE WNL. NO S/S OF INFECTION NOTED. CALL LIGHT WITHIN REACH. BED IN LOWEST POSTION. WILL ENDORSE ALL CARE TO NOC RN.
[2019-05-05 19:20] VITALS: BP 107/43
--- NOTE | 2019-05-05 19:20 | NUR ---
RECEIVED PT AWAKE ALERT AND VERBALLY RESPONSIVE IN [place].DENIES CHESTPAIN AT THIS TIME.BP 107/43 MMHG,HR 62.DENIES ABDOMINAL PAIN.NO N/V NOTED.TOLERATED FULL LIQUID DIET DINNER TIME.BM TONIGHT .ACTIVE BOWEL SOUNDS.ENCOURAGED TO CALL FOR ASSISTANCE AT ALL TIMES.WILL CONTINUE TO MONITOR.
--- NOTE | 2019-05-05 21:43 | NUR ---
TOLERATED FULL LIQUID DIET ORDER.STANDING ORDER TO CHANGE DIET TOLERATED TO THE [facility] SOFT DIET PER DR. RANKIN.
--- NOTE | 2019-05-06 04:53 | NUR ---
PT SLEPT WELL WITH OCCASSIONAL COUGHING.POST NGT REMOVAL YESTERDAY MORNING.DENIES ANY PAIN ALL NIGHT..ASSISTED TO BR NEEDED.ALL NEEDS MET.WILL CONTINUE TO MONITOR.
[2019-05-06 05:52] VITALS: BP 107/50
[2019-05-06 06:51] LABS: BASOPHIL % 0.7 % (0-2); PLATELET COUNT 188 x10^3mcL (130-400); RED CELL DISTRIBUTION WIDTH 13.5 % (11.5-14.5)
--- NOTE | 2019-05-06 07:25 | NUR ---
PT IS AAOX4. LUNG SOUNDS CTA. ON ROOM AIR. NO COUGH OR SOB NOTED. NORMAL S1S2. ABDOMEN SOFT, NONTENDER, NONDISTENDED. BOWEL SOUNDS ACTIVE X4 QUADS. PT DENIES AB PAIN, N/V/D AND CONSTIPATION. SKIN CDI. PERIPHERAL PULSES MODERATELY PALPABLE. NO EDEMA. IVF RUNNING TO LAC. SITE WNL. NO S/S OF INFECTION NOTED. DENIES PAIN AT THIS TIME. CALL LIGHT WITHIN REACH. BED IN LOWEST POSITION. FALL PROTOCOL IN PLACE.
[2019-05-06 07:29] LABS: CALCIUM 8.3 mg/dL (8.5-10.1); CARBON DIOXIDE 31.3 mmol/L (21-32); CHLORIDE SERUM 109 mmol/L (98-107); CREATININE SERUM 0.6 mg/dL (0.6-1.0); GLUCOSE SERUM 83 mg/dL (74-106); MAGNESIUM 2.4 mg/dL (1.8-2.4); SODIUM SERUM 145 mmol/L (136-145)
[2019-05-06 08:26] VITALS: BP 117/47
--- NOTE | 2019-05-06 09:40 | NUR ---
DR. CAMPOS MET WITH PT AND DISCUSSED POC. PT MAY DISCHARGE TODAY. PT AGREED WITH POC.
--- NOTE | 2019-05-06 09:51 | NUR ---
NICODERM PATCH REMOVED FROM L DELTOID. NEW NICODERM PATCH PLACED ON R DELTOID. B/P 117/47. RESP EVEN AND UNLABORED. NO DISTRESS NOTED. PT DENIES PAIN AT THIS TIME. DAUGHTER AT BEDSIDE. CALL LIGHT WITHIN REACH.
--- NOTE | 2019-05-06 13:00 | NUR ---
PT IS SITTING UP AT BEDSIDE VISITING WITH DAUGHTER. RESP EVEN AND UNLABORED. NO DISTRESS NOTED. PT DENIES PAIN AT THIS TIME. CALL LIGHT WITHIN REACH.
--- NOTE | 2019-05-06 15:00 | NUR ---
PHYSICAL THERAPY DAILY NOTES CO-SIGN All documentation done by the [employer] for 05/06/19 has been reviewed. I agree with the documentation. Reviewed/Co-Signed by: Isidra Manrique PT Documentation Done by:KHADRA MUJICA PTA
[2019-05-06 15:06] VITALS: BP 117/47
--- NOTE | 2019-05-06 16:36 | NUR ---
PT DISCHARGED TO HOME IN NO DISTRESS. DISCHARGE INSTRUCTIONS REVIEWED. ALL FORMS SIGNED AND PLACED IN CHART. RX GIVEN TO PT. VS: T 97.7, HR 61, RR 20, B/P 117/47, O2 SAT 98% ON R/A. PT DENIES PAIN UPON DISCHARGE. IV CATH TO LAC REMOVED INTACT. COVERED WITH GAUZE AND BANDAID. SITE WNL. NO S/S OF INFECTION OR INFITRATION. ALL PERSONAL BELONGINGS TAKEN HOME WITH PT.
== END 2019-05-06 15:30 | disposition home or self-care (01) | DRG 389 ==
LOC: ED 18:15 → MU 21:34
PROVIDERS: Emergency Medicine; Internal Medicine Pulmonary Disease; ADMIT Internal Medicine Pulmonary Disease
DX: K56.600 Partial intestinal obstruction, unspecified as to cause (principal); R18.8 Other ascites; E44.0 Moderate protein-calorie malnutrition; K56.7 Ileus, unspecified; E86.0 Dehydration; I10 Essential (primary) hypertension; J44.9 Chronic obstructive pulmonary disease, unspecified; M81.0 Age-related osteoporosis without current pathological fracture; F17.210 Nicotine dependence, cigarettes, uncomplicated
CPT/HCPCS: 97116-GP; 97530-GP; C9113; G0378; J1644; J2405; J2543; J3010; J3475; J7030; J7040; J7042; Q0092; Q9966; Q9967